=== PATIENT | female | born 1965 | race Caucasian/White ===

== ENCOUNTER 2023-12-18 17:45 | Emergency (ER) | payer OTHER ==
[2023-12-18 17:59] VITALS: BP 128/68; PULSE 79; RESP 22; TEMP 98; BMI 25.8
[2023-12-18 19:00] LABS: BASO % 1.1 % (0-2.0); EOS % 0.6 % (0-4.5); HEMATOCRIT 42.9 % (32.4-45.2); HEMOGLOBIN 14.6 GM/dL (10.7-15.3); LYMPH % 18.5 % (8-40); MCH 29.2 pg (25.7-33.7); MEAN CELL VOLUME 85.9 fl (80-96); MEAN PLT VOLUME 6.8 fl (7.5-11.1); NEUT % 73.8 % (42.8-82.8); PLATELET COUNT 369 10^3/uL (134-434); RDW 15.2 % (11.6-15.6); WHITE BLOOD COUNT 12.1 K/mm3 (4.0-10.0)
[2023-12-18] MEDS ORDERED: ACETAMINOPHEN INJECTION 100 ML IVPB ONE (19:00)
[2023-12-18] MEDS ORDERED: ALBUTEROL SO4 2.5/IPRATROPIUM 0.5 INH SOL 3 ML VIAL.NEB. NEB ONE ×2 (19:00→19:24)
[2023-12-18] MEDS ORDERED: methylPREDNISolone NA SUCC 125 MG/2 ML VIAL ONE (19:01)
[2023-12-18] MEDS ORDERED: LIDOCAINE 4% PATCH TP ONE (19:01)
[2023-12-18 19:05] LABS: VENOUS PCO2 38.1 mmHg (38-52); VENOUS PH 7.42 (7.310-7.410)
[2023-12-18 19:07] LABS: INR 0.96 (0.83-1.09); PROTHROMBIN TIME (PATIENT) 11.1 SEC (9.7-13.0)
[2023-12-18] MEDS: methylPREDNISolone NA SUCC 125 MG/2 ML VIAL IVPUSH ONE (19:10)
[2023-12-18] MEDS: LIDOCAINE 4% PATCH TP ONE (19:11)
[2023-12-18] MEDS: ACETAMINOPHEN 1000 MG/100 ML BAG IVPB ONE (19:11)
[2023-12-18] MEDS: ALBUTEROL SO4 2.5/IPRATROPIUM 0.5 INH SOL 3 ML VIAL.NEB. NEB SCH (19:12)
[2023-12-18] MEDS ORDERED: METHOCARBAMOL 500 MG TABLET ONE (19:25)
[2023-12-18] MEDS: METHOCARBAMOL 750 MG TAB PO ONE (19:29)
[2023-12-18 19:40] LABS: CHLORIDE 105 mmol/L (98-107); POTASSIUM 3.9 mmol/L (3.5-5.1); SODIUM 135 mmol/L (136-145)
[2023-12-18 19:42] LABS: CALCIUM 10.1 mg/dL (8.5-10.1)
[2023-12-18 19:43] LABS: ALBUMIN 4.4 g/dl (3.4-5.0); ANION GAP 4 mmol/L (4-13); BLOOD UREA NITROGEN 20.7 mg/dL (7-18); CO2 26 mmol/L (21-32); GLUCOSE,RANDOM 108 mg/dL (74-106); MAGNESIUM 2.4 mg/dL (1.8-2.4)
[2023-12-18 19:46] LABS: PHOSPHOROUS 3.2 mg/dL (2.5-4.9); SGOT/AST 13 U/L (15-37); SGPT/ALT 29 U/L (13-61)
[2023-12-18 19:47] LABS: TOT PROT 7.6 g/dl (6.4-8.2)
[2023-12-18 19:48] LABS: BILIRUBIN,TOTAL 0.3 mg/dL (0.2-1)
[2023-12-18 19:49] LABS: ALK PHOS 132 U/L (45-117)
[2023-12-18 21:32] LABS: PH,URINE 5.5 (5.0-8.0); URINE APPEARANCE CLEAR; URINE BILIRUBIN NEGATIVE (NEGATIVE); URINE COLOR YELLOW; URINE GLUCOSE (UA) TRACE (NEGATIVE); URINE KETONE NEGATIVE (NEGATIVE); URINE LEUK ESTERASE NEGATIVE (NEGATIVE); URINE NITRITE NEGATIVE (NEGATIVE); URINE PROTEIN NEGATIVE (NEGATIVE); URINE UROBILINOGEN 0.2 mg/dL (0.2-1.0)
[2023-12-19] MEDS ORDERED: LIDOCAINE PATCH REMOVAL MC SCH (07:00)
== END 2023-12-18 22:17 | disposition home or self-care (01) ==
LOC: JER 17:45
PROC: 3E033NZ Introduction of Analgesics, Hypnotics, Sedatives into Peripheral Vein, Percutaneous Approach (ICD-10-PCS; principal; 2023-12-18)
PROC: 3E033GC Introduction of Other Therapeutic Substance into Peripheral Vein, Percutaneous Approach (ICD-10-PCS; 2023-12-18)
PROC: 3E0F7GC Introduction of Other Therapeutic Substance into Respiratory Tract, Via Natural or Artificial Opening (ICD-10-PCS; 2023-12-18)
DX: M54.50 Low back pain, unspecified (principal); R06.02 Shortness of breath; J44.1 Chronic obstructive pulmonary disease with (acute) exacerbation; R05.9 Cough, unspecified; Z20.822 Contact with and (suspected) exposure to COVID-19
CPT/HCPCS: 0241U-QW; 36415; 71046-TC-FY; 76705-TC; 80053; 81003; 82140; 82550; 82803; 83735; 83880; 84100; 84484; 85025; 85610; 85730; 86850; 86900; 86901; 87086; 93005; 93010; 99285-25; J0131

== ENCOUNTER 2024-03-22 05:26 | Observation (INO) | payer OTHER ==
[2024-03-22] MEDS ORDERED: ALBUTEROL SO4 2.5/IPRATROPIUM 0.5 INH SOL 3 ML VIAL.NEB. NEB ONE ×3 (05:42→11:32)
[2024-03-22] MEDS: ALBUTEROL SO4 2.5/IPRATROPIUM 0.5 INH SOL 3 ML VIAL.NEB. NEB SCH ×3 (06:14→18:00)
[2024-03-22] MEDS ORDERED: MAGNESIUM SULFATE IN WATER 2 GM/50 ML IVPB IVPB ONE (06:14)
[2024-03-22] MEDS: MAGNESIUM SULF 50% (8.12 MEQ/2 ML-1 GM VIAL) IVPB ONE (06:20)
[2024-03-22] MEDS: SODIUM CHLORIDE 1,000 ML IV STA (06:22)
[2024-03-22 06:27] LABS: VENOUS BASE EXCESS -0.5 mmol/L (-2-2); VENOUS O2 SATURATION 65.7 % (70-80); VENOUS PH 7.372 (7.310-7.410)
[2024-03-22 06:46] LABS: INR 1.04 (0.83-1.09); PROTHROMBIN TIME (PATIENT) 11.9 SEC (9.7-13.0)
[2024-03-22 06:49] LABS: ACTIVATED PTT 29.5 SECONDS (25.2-36.5)
[2024-03-22 06:52] LABS: POTASSIUM 3.7 mmol/L (3.5-5.1)
[2024-03-22 06:54] LABS: ALBUMIN 3.8 g/dl (3.4-5.0); BLOOD UREA NITROGEN 6.5 mg/dL (7-18); CALCIUM 9.4 mg/dL (8.5-10.1); MAGNESIUM 2.1 mg/dL (1.8-2.4)
[2024-03-22 06:58] LABS: CREATININE 0.7 mg/dL (0.55-1.3)
[2024-03-22 06:59] LABS: BILIRUBIN,TOTAL 0.5 mg/dL (0.2-1); TOT PROT 6.6 g/dl (6.4-8.2)
[2024-03-22 07:00] LABS: BASO % 0.7 % (0-2.0); HEMATOCRIT 41.8 % (32.4-45.2); HEMOGLOBIN 14.6 GM/dL (10.7-15.3); LYMPH % 12.3 % (8-40); MCH 28.9 pg (25.7-33.7); MCHC 34.8 g/dl (32.0-36.0); MEAN CELL VOLUME 83.1 fl (80-96); MONO % 4.6 % (3.8-10.2); NEUT % 80.4 % (42.8-82.8); PLATELET COUNT 321 10^3/uL (134-434); RBC 5.03 M/mm3 (3.60-5.2); RDW 15.2 % (11.6-15.6); WHITE BLOOD COUNT 7.8 K/mm3 (4.0-10.0)
[2024-03-22 07:02] LABS: N-TERMINAL BNP 37.6 pg/ml (5-125)
[2024-03-22] MEDS ORDERED: oxyCODONE HCL 5 MG TABLET ONE (07:29)
[2024-03-22] MEDS: oxyCODONE HCL 5 MG TABLET PO ONE (07:30)
[2024-03-22] MEDS: BENZONATATE 200 MG CAPSULE PO ONE (08:19)
[2024-03-22] MEDS: LACTATED RINGERS SOLUTION 1000 ML INFUS.BAG IV ONE (08:19)
[2024-03-22] MEDS ORDERED: predniSONE 20 MG TABLET (UD) ONE (09:56)
[2024-03-22] MEDS ORDERED: FAMOTIDINE 10 MG TABLET ONE (09:56)
[2024-03-22] MEDS: FAMOTIDINE 10 MG TABLET PO ONE (10:03)
[2024-03-22] MEDS: predniSONE 20 MG TABLET (UD) PO ONE (10:03)
[2024-03-22] MEDS ORDERED: CEFEPIME 1 GM/100 ML BAG IVPB ONE (10:12)
[2024-03-22] MEDS ORDERED: AZITHROMYCIN IVPB 500 MG/250 ML BAG IVPB ONE (10:12)
[2024-03-22] MEDS ORDERED: CEFEPIME 2 GM/100 ML BAG IVPB ONE ×2 (10:13→10:14)
[2024-03-22] MEDS: AZITHROMYCIN 250 MG TABLET PO ONE (10:15)
[2024-03-22] MEDS ORDERED: guaiFENesin 200 MG/10 ML 10 ML UNIT-DOSE CUPS ONE (10:24)
[2024-03-22] MEDS: guaiFENesin 200 MG/10 ML 10 ML UNIT-DOSE CUPS PO ONE (10:27)
[2024-03-22] MEDS: CEFEPIME HCL 2 GM VIAL (RESTRICTED TO ID) IVPB ONE (10:35)
[2024-03-22] MEDS: AZITHROMYCIN IVPB 500 MG in DEXTROSE 5%-WATER - 250 ML IVPB ONE (10:53)
[2024-03-22] MEDS ORDERED: morphine SULFATE 4 MG/ML VIAL ONE (11:32)
[2024-03-22] MEDS: morphine CARPU-JECT 4 MG/1 ML DISP.SYRIN IVPUSH ONE (11:48)
[2024-03-22 13:28] VITALS: BP 141/77; PULSE 99
[2024-03-22 13:33] VITALS: TEMP 97.9
[2024-03-22 16:07] VITALS: RESP 20; BMI 21.0
== END 2024-03-22 22:10 | disposition short-term general hospital (02) ==
LOC: JER 05:26 → JERBED 10:07 → J7W 13:44
PROVIDERS: ADMIT Internal Medicine; ATTEND Internal Medicine
PROC: 3E0F7GC Introduction of Other Therapeutic Substance into Respiratory Tract, Via Natural or Artificial Opening (ICD-10-PCS; principal; 2024-03-22)
PROC: 3E03329 Introduction of Other Anti-infective into Peripheral Vein, Percutaneous Approach (ICD-10-PCS; 2024-03-22)
PROC: 3E03329 Introduction of Other Anti-infective into Peripheral Vein, Percutaneous Approach (ICD-10-PCS; 2024-03-22)
PROC: 3E0337Z Introduction of Electrolytic and Water Balance Substance into Peripheral Vein, Percutaneous Approach (ICD-10-PCS; 2024-03-22)
PROC: 3E033NZ Introduction of Analgesics, Hypnotics, Sedatives into Peripheral Vein, Percutaneous Approach (ICD-10-PCS; 2024-03-22)
DX: C34.90 Malignant neoplasm of unspecified part of unspecified bronchus or lung (principal); J44.9 Chronic obstructive pulmonary disease, unspecified; K76.0 Fatty (change of) liver, not elsewhere classified; R19.00 Intra-abdominal and pelvic swelling, mass and lump, unspecified site; F10.21 Alcohol dependence, in remission; Z72.0 Tobacco use; Z88.8 Allergy status to other drugs, medicaments and biological substances; Z88.0 Allergy status to penicillin
CPT/HCPCS: 0241U-QW; 36415; 71045-TC-FY; 71275-TC; 80053; 82803; 83735; 83880; 84484; 85025; 85610; 85730; 86713; 86850; 86900; 86901; 87070; 87205; 93005; 93010; 94640; 96361; 96365; 96375; 96376; 99285-25; G0378; Q9967